=== PATIENT | female | born 1980 | race African-American/Black ===

== ENCOUNTER 2022-04-03 10:12 | Outpatient (CLI) | payer OTHER, SELFPAY ==
[2022-04-03 19:37] LABS: Hepatitis B Surface Antigen Negative (Negative)
[2022-04-03 19:46] LABS: HIV 1/2 Ab P24 Ag Result Negative (Negative)
[2022-04-03 19:54] LABS: Hepatitis C Virus Antibody Negative (Negative)
[2022-04-04 09:46] LABS: Rapid Plasma Reagin Non-Reactive (NonReactive)
== END 2022-04-03 10:13 | disposition home or self-care (01) ==
PROVIDERS: Visit Provider Obstetrics & Gynecology
DX: Z20.2 Contact with and (suspected) exposure to infections with a predominantly sexual mode of transmission (principal)
CPT/HCPCS: 36415; 86592; 86703; 86803; 87340; G0432

== ENCOUNTER 2023-03-23 14:58 | Outpatient (CLI) | payer OTHER, SELFPAY ==
[2023-03-23 16:51] LABS: HIV 1/2 Ab P24 Ag Result Negative (Negative)
[2023-03-23 17:49] LABS: Hepatitis C Virus Antibody Negative (Negative)
[2023-03-26 10:06] LABS: Rapid Plasma Reagin Non-Reactive (NonReactive)
[2023-03-27 19:01] LABS: Hepatitis Be Antigen Nonreactive
[2023-03-30 15:06] LABS: HSV 1 IgM Screen Negative (Negative); HSV 2 IgM Screen Negative (Negative)
== END 2023-03-23 14:59 | disposition home or self-care (01) ==
LOC: ANHLAB 14:59
PROVIDERS: Visit Provider Registered Nurse
DX: Z11.3 Encounter for screening for infections with a predominantly sexual mode of transmission (principal)
CPT/HCPCS: 36415; 86592; 86695; 86696; 86703; 86803; 87350; G0432